=== PATIENT | male | born 1985 | race Hispanic/Latino ===

== ENCOUNTER 2022-01-17 11:39 | Emergency (ER) | payer SELFPAY ==
[~2022-01-17] VITALS: Ht 170.2 cm; Wt 2.3 kg
[2022-01-17] MEDS ORDERED: FAMOTIDINE 20 MG TAB PO ONE (12:00)
[2022-01-17] MEDS ORDERED: DEXAMETHASONE SOD PHOS 10 MG/1 ML VIAL IM ONE (12:00)
[2022-01-17] MEDS ORDERED: DEXAMETHASONE SOD PHOS 10 MG/1 ML VIAL ONE (12:07)
== END 2022-01-17 12:11 | disposition home or self-care (01) ==
LOC: ER 11:45
DX: L23.7 Allergic contact dermatitis due to plants, except food (principal)
CPT/HCPCS: 99283; J1100